=== PATIENT | female | born 1995 | race Caucasian/White ===

== ENCOUNTER 2019-08-20 15:46 | Inpatient (IN) ==
[2019-08-20 17:03] LABS: Amphetamine Screen,Urine Negative ng/mL (Cutoff=1000); Barbiturate Screen,Urine Negative ng/mL (Cutoff=200); Benzodiazepines Screen,Urine Positive ng/mL (Cutoff=200); Cannabinoid Screen,Urine Negative ng/mL (Cutoff = 50); Cocaine Screen,Urine Negative ng/mL (Cutoff= 300); Opiate Screen,Urine Positive ng/mL (Cutoff=300); Phencyclidine Screen,Urine Negative ng/mL (Cutoff=25)
[2019-08-20 17:10] LABS: Acetaminophen < 10 mcg/mL (10-20); BUN/Creatinine Ratio 13 (6-26); Blood Urea Nitrogen 9 mg/dL (6-20); Calcium 9.7 mg/dL (8.6-10.3); Carbon Dioxide 27 mEq/L (23-29); Chloride 102 mEq/L (98-107); Ethanol < 10 mg/dL (Less than 10); Glucose 106 mg/dL (70-105); Osmolality,Calculated 281 (280-300); Salicylate < 2.5 mg/dL (15.0-30.0); Sodium 136 mEq/L (136-145); eGFR For African Americans > 60 (> 60); eGFR For Non-African Americans > 60 (> 60)
[2019-08-20 17:11] LABS: Bilirubin,Urine Negative (Negative); Blood,Urine Negative (Negative); Clarity,Urine Clear (Clear); Color,Urine Yellow (Yellow); Glucose,Urine (UA) Normal (Normal); Ketones,Urine Negative (Negative); Leukocyte Esterase,Urine Negative (Negative); Mucus,Urine Few per lpf (None-Few); Nitrite,Urine Negative (Negative); PH,Urine 7.5 pH Units (5.0-8.0); Protein,Urine 30 mg/dL (Neg-Trace); RBC,Urine 0-3 per hpf (0-3); Specific Gravity,Urine 1.028 (1.010-1.025); Squamous Epithelial Cell,Urine Few per hpf (None-Few); WBC,Urine 0-3 per hpf (0-3)
[2019-08-20 17:23] LABS: Basophils % 0.5 %; Eosinophils # 0.1 K/mcL (0.0-0.6); Eosinophils % 1.5 %; Hematocrit 41.1 % (35.3-44.9); Hemoglobin 13.5 g/dL (11.5-15.4); Immature Granulocytes % 0.3 % (0-4); Lymphocytes # 1.5 K/mcL (0.6-4.6); Lymphocytes % 24.3 %; Mean Corpuscular HGB Conc 32.8 g/dL (31.6-35.5); Mean Corpuscular Hemoglobin 31.6 pg (28.0-33.3); Mean Corpuscular Volume 96.3 fL (83.0-100.0); Mean Platelet Volume 10.7 fL (9.4-12.4); Monocytes # 0.4 K/mcL (0.0-1.3); Monocytes % 6.5 %; Platelet Count 273 K/mcL (140-400); Red Blood Count 4.27 M/mcL (3.82-4.97); Red Cell Distribution Width 12.4 % (11.5-14.5); Segmented Neutrophils % 66.9 %
[2019-08-20 17:30] LABS: Hepatitis B Surface Antigen Nonreactive (Nonreactive)
[2019-08-20 17:59] LABS: HIV-1&2 Antibody & p24 Ag Nonreactive (Nonreactive)
[2019-08-20 18:00] LABS: Hepatitis B Core IgM Nonreactive (Nonreactive)
[2019-08-20 18:02] LABS: Hepatitis A Antibody IgM Nonreactive (Nonreactive)
[2019-08-20 19:25] LABS: Hepatitis C Virus Antibody Reactive (Nonreactive)
[2019-08-20] MEDS ORDERED: *HR* LORazepam 1 MG TABLET PO PRN (21:10)
[2019-08-20] MEDS ORDERED: MOM Conc 10 ML UD.LIQ PO PRN (21:10)
[2019-08-20] MEDS ORDERED: Ibuprofen 400 MG TABLET PO PRN (21:10)
[2019-08-20] MEDS ORDERED: hydrOXYzine pamoate 25 MG CAPSULE PO PRN (21:10)
[2019-08-20] MEDS ORDERED: haloperidoL 5 MG TABLET PO PRN (21:10)
[2019-08-20] MEDS ORDERED: Mag Hydrox/Al Hydrox/Simeth 30 ML UDC PO PRN (21:10)
[2019-08-20] MEDS ORDERED: *HR* LORazepam 2 MG/ML VIAL IM PRN (21:10)
[2019-08-20] MEDS ORDERED: traZODone 50 MG TABLET PO PRN (21:10)
[2019-08-20] MEDS ORDERED: Haloperidol Lactate 5 MG/ML VIAL IM PRN (21:10)
[2019-08-21] MEDS ORDERED: cloNIDine HCL 0.1 MG TABLET PO PRN (12:50)
[2019-08-21] MEDS ORDERED: Neosporin OINT 1 APPL PACKET TP ONE (12:54)
[2019-08-21] MEDS ORDERED: Ondansetron ODT 4 MG TAB.RAPDIS SL PRN (12:55)
[2019-08-21] MEDS: Venlafaxine XR (24 HR) 75 MG CAP.ER.24H PO SCH (15:01)
[2019-08-21] MEDS: Nicotine 21 MG PATCH.TD24 TD SCH (15:02)
[2019-08-22] MEDS: Venlafaxine XR (24 HR) 75 MG CAP.ER.24H PO SCH (09:35)
[2019-08-22] MEDS: Nicotine 21 MG PATCH.TD24 TD SCH (09:37)
[2019-08-22 10:50] VITALS: BP 110/77
== END 2019-08-22 11:40 | disposition home or self-care (01) | DRG 885 ==
LOC: EMEROOARM 15:46 → 1ANU 20:50
PROVIDERS: ADMIT Psychiatry & Neurology Psychiatry; ATTEND Psychiatry & Neurology Psychiatry